=== PATIENT | female | born 1980 | race African-American/Black ===

== ENCOUNTER 2022-10-08 03:32 | Emergency (ER) | payer MEDICAID, SELFPAY ==
[~2022-10-08] VITALS: Ht 149.9 cm; Wt 57.4 kg
[2022-10-08 03:39] VITALS: BP 139/115
[2022-10-08] MEDS ORDERED: ACETAMINOPHEN 325MG TABLET PO ONE (05:15)
[2022-10-08] MEDS ORDERED: ACET-2708 MT (05:21)
[2022-10-08 06:20] LABS: CHLORIDE 105 mEq/L (98-107)
[2022-10-08 06:31] LABS: HEMATOCRIT. 38.8 % (36.0-48.0); HEMOGLOBIN. 13.4 g/dL (12.0-16.0); MEAN CORPUSCULAR HEMOGLOBIN 29.4 pg (28.0-32.0); MEAN CORPUSCULAR VOLUME 85.1 fL (81.0-99.0); MEAN PLATELET VOLUME 8.5 fl (7.4-10.4); PLATELET 299 x1000/uL (130-400); RED BLOOD CELL COUNT 4.56 mill/uL (4.2-5.4); RED CELL DISTRIBUTION WIDTH 13.6 % (11.6-14.6)
[2022-10-08 08:27] LABS: PLATELET ESTIMATE NORMAL
== END 2022-10-08 06:37 | disposition home or self-care (01) ==
LOC: ER 03:32
DX: G56.02 Carpal tunnel syndrome, left upper limb (principal); Z00.00 Encounter for general adult medical examination without abnormal findings
CPT/HCPCS: 29125; 36415; 80048; 81025; 85025; 99283